=== PATIENT | male | born 1945 | race Caucasian/White ===

== ENCOUNTER → 2022-11-12 14:17 | Outpatient (CLI) | payer OTHER, SELFPAY ==
--- NOTE | 2022-11-12 | DI.RAD.S_ITS ---
PROCEDURE: XR CHEST 2V INDICATIONS: Chest pain, unspecified TECHNIQUE: 2 views of the chest were acquired. COMPARISON: None. FINDINGS: Surgical changes and devices: Sternotomy wires, presumed prior CABG. Lungs and pleura: Lungs are clear. No pleural effusions or pneumothorax. Mediastinum: Mediastinal contours are normal. Heart size is normal. Bones and chest wall: No suspicious bony abnormalities. Soft tissues appear unremarkable. IMPRESSION: Mildly reduced inspiratory volume causing crowding of the bronchovascular markings but no pneumonia is seen when this is taken into account. Prior CABG. Dictated by: Felipe Isaac M.D. on 11/12/2022 at 14:51 Approved by: Felipe Isaac M.D. on 11/12/2022 at 14:51
== END ==
PROVIDERS: PCP Physician Assistant; Referring Provider Internal Medicine; Visit Provider Internal Medicine
DX: R07.9 Chest pain, unspecified (principal); R06.09 Other forms of dyspnea; Z95.1 Presence of aortocoronary bypass graft
CPT/HCPCS: 71046